=== PATIENT | female | born 1965 | race Caucasian/White ===

== ENCOUNTER 2017-07-02 15:00 | Emergency (ER) ==
[~2017-07-02] VITALS: Ht 172.7 cm; Wt 106.6 kg
--- OUTSIDE RECORDS SUMMARY | 2017-07-02 15:03 | XMS REPORT | Clinical Summary ---
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 Disp. Refills Start End Date Status Date meloxicam (MOBIC) 15 mg Take 1 tablet (15 mg 10 tablet 0 05/21/19 Discontin tablet total) by mouth daily as 18 18 ued needed for moderate pain for up to 10 doses. traMADol (ULTRAM) 50 mg Take 1 tablet (50 mg 10 tablet 0 05/21/19 tablet total) by mouth every 8 18 18 (eight) hours as needed for moderate pain for up to 10 doses. Active Problems Not on file Encounters Date Type Specialty Care Team Description 05/20/2017 Emergency Emergency Medicine Ratna Colon, Sprain of left ankle, PA-C unspecified ligament, Adi Walker MD initial encounter (Primary Dx) after 07/01/2016 Social History Tobacco Use Types Packs/Day Years Used Date Never Smoker Smokeless Tobacco: Never Used Alcohol Use Drinks/Week oz/Week Comments No Sex Assigned at Date Recorded Not on file Last Filed Vital Signs Vital Sign Reading Time Taken Blood Pressure 136/91 05/20/2017 7:07 PM CDT Pulse 71 05/20/2017 7:07 PM CDT Temperature 36.6 C (97.9 F) 05/20/2017 4:33 PM CDT Respiratory Rate 18 05/20/2017 7:07 PM CDT Oxygen Saturation 99% 05/20/2017 7:11 PM CDT Inhaled Oxygen - - Concentration Weight 109 kg (240 lb) 05/20/2017 4:33 PM CDT Height 175.3 cm (5' 9") 05/20/2017 4:33 PM CDT Body Mass Index 35.44 05/20/2017 4:33 PM CDT Plan of Treatment Health Maintenance Due Date Last Done Comments PAP SMEAR 1986 COLONOSCOPY 05/17/2015 MAMMOGRAM 05/17/2015 SHINGRIX VACCINE (#1) 05/17/2015 INFLUENZA VACCINE 10/03/2017 Results * XR Ankle 3+ Vw Left (05/20/2017 5:45 PM) Specimen Performing Laboratory [facility] [address] [facility] [place] [address] Narrative XR ANKLE 3VW LEFT CLINICAL INDICATION:ankle pain COMPARISON:None. IMPRESSION: There is no acute fracture or dislocation. There are surgical changes related to medial plate and screw fixation of the distal tibia without evidence of hardware fracture or perihardware lucency. One of the screws does extend beyond the lateral cortex of the tibia into the distal tibiofibular syndesmosis. There is an old, healed distal fibular shaft fracture. 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 [facility]-[id number] Procedure Note Hm Interface, Radiology Results Incoming - 05/20/2017 5:58 PM CDT XR ANKLE 3 VW LEFT CLINICAL INDICATION: ankle pain COMPARISON: None. IMPRESSION: There is no acute fracture or dislocation. There are surgical changes related to medial plate and screw fixation of the distal tibia without evidence of hardware fracture or perihardware lucency. One of the screws does extend beyond the lateral cortex of the tibia into the distal tibiofibular syndesmosis. There is an old, healed distal fibular shaft fracture. 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 [facility]-[id number] after 07/01/2016
[2017-07-02] MEDS ORDERED: HYDROCODONE/APAP 10MG-325MG TAB PO ONE (15:15)
[2017-07-02] MEDS ORDERED: CYCLOBENZAPRINE HCL 10 MG TAB PO ONE (15:15)
[2017-07-02] MEDS ORDERED: KETOROLAC TROMETHAMINE 60 MG/2 ML VIAL IM ONE (15:15)
--- NOTE | 2017-07-02 16:03 | Diagnostic Imaging Report ---
PROCEDURE:X-RAY UNILATERAL RIBS WITH CHEST X-RAY COMPARISON:None. INDICATIONS:fall rib pain FINDINGS: BONES:Ill-defined lucency through the posterolateral right fourth rib identified on one oblique view, likely artifactual, otherwise no displaced fracture. SOFT TISSUES:Negative. OTHER:The lungs are clear. No pleural effusion or pneumothorax. CONCLUSION: No displaced fracture. Naseem Quiroz M.D. Dictated by: Naseem Quiroz M.D. on 07/02/2017 at 16:05 Electronically approved by: Naseem Quiroz M.D. on 07/02/2017 at 16:05
== END 2017-07-02 17:06 | disposition home or self-care (01) ==
LOC: ER 15:00
DX: S20.211A Contusion of right front wall of thorax, initial encounter (principal); W01.198A Fall on same level from slipping, tripping and stumbling with subsequent striking against other object, initial encounter; Y93.89 Activity, other specified; Y92.69 Other specified industrial and construction area as the place of occurrence of the external cause
CPT/HCPCS: 71101; 99283

== ENCOUNTER 2018-04-14 21:08 | Emergency (ER) | payer SELFPAY ==
[~2018-04-14] VITALS: Ht 172.7 cm; Wt 106.6 kg
--- OUTSIDE RECORDS SUMMARY | 2018-04-14 21:11 | XMS REPORT | Clinical Summary ---
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 05/22/2017 traMADol (ULTRAM) 50 mg Take 1 tablet 10 tablet 0 201 tablet (50 mg total) 8 by mouth every 8 (eight) hours as needed for moderate pain for up to 10 doses. Active Problems Not on file Encounters Care Team Description Date Type Specialty Ratna Colon PA-C Islam, Nadim Bin, MD Sprain of left ankle, unspecified ligament, initial encounter (Primary Dx) 05/20/2017 Emergency Emergency Medicine after 04/13/2017 Social History Date Tobacco Use Types Packs/Day Years Used Never Smoker Smokeless Tobacco: Never Used Alcohol Use Drinks/Week oz/Week Comments No Sex Assigned at Date Recorded Not on file Industry Job Start Date Occupation Not on file Not on file Not on file Travel End Travel History Travel Start No recent travel history available. Last Filed Vital Signs Time Taken Vital Sign Reading 05/20/2017 7:07 PM CDT Blood Pressure 136/91 05/20/2017 7:07 PM CDT Pulse 71 05/20/2017 4:33 PM CDT Temperature 36.6 C (97.9 F) 05/20/2017 7:07 PM CDT Respiratory Rate 18 05/20/2017 7:11 PM CDT Oxygen Saturation 99% - Inhaled Oxygen - Concentration 05/20/2017 4:33 PM CDT Weight 109 kg (240 lb) 05/20/2017 4:33 PM CDT Height 175.3 cm (5' 9") 05/20/2017 4:33 PM CDT Body Mass Index 35.44 Plan of Treatment Health Maintenance Due Date Last Done Comments CERVICAL CANCER SCREENING 1986 BREAST CANCER SCREENING 05/17/2015 COLON CANCER SCREENING 05/17/2015 SHINGLES VACCINES (1 of 05/17/2015 2) INFLUENZA VACCINE 10/03/2017 Procedures Comments Procedure Name Priority Date/Time Associated Diagnosis XR ANKLE 3+ VW LEFT STAT 05/20/2017 5:45 PM CDT after 04/13/2017 Results * XR Ankle 3+ Vw Left (05/20/2017 5:45 PM CDT) Narrative [facility]formed [facility] CL[facility]ICAL IND[facility]:ankle pain COMPARISON:None. IMPRESSION: There is [...] is severe osteoarthrosis of the tibiotalar joint. [facility]-[id number] Procedure Note Hm Interface, Radiology Results Incoming [...] is severe osteoarthrosis of the tibiotalar joint. [facility]-[id number] Performing Organization Address City/State/Zipcode Phone Number [facility] [phone] [place] [address] after 04/13/2017 Advance Directives Patient has advance care planning documents on file. For more information, erica e contact: Ángel Cano [address] [place] [address]
--- OUTSIDE RECORDS SUMMARY | 2018-04-14 21:11 | XMS REPORT ---
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 Allergies, Adverse Reactions, Alerts This patient has no known allergies or adverse reactions. Medications This patient has no known medications. 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 INDICATIONS: fall rib pain FINDINGS: BONES: Ill-defined lucency through the posterolateral right fourth rib identified on one oblique view, likely artifactual, otherwise no displaced fracture. SOFT TISSUES: Negative. OTHER: The lungs are clear. No pleural effusion or pneumothorax. CONCLUSION: No displaced fracture. Naseem Rivera M.D. Dictated by: Naseem Rivera M.D. on 07/02/2017 at 16:05 Electronically approved by: Naseem Rivera M.D. on 07/02/2017 at 16:05 Dictated By: BRITTANI RIVERA MD, MD 1605 Transcribed By: JADA on 07/02/17 1605 COPY TO: LYNETTE MARTINEZ NP
== END 2018-04-14 21:56 | disposition left against medical advice (07) ==
LOC: ER 21:08
DX: S99.922A Unspecified injury of left foot, initial encounter (principal)